=== PATIENT | female | born 1990 ===

== ENCOUNTER 2019-08-19 19:12 | Emergency (ER) | payer OTHER ==
--- NOTE | 2019-08-19 19:22 | UC ---
General HPI - HPI Summary HPI Summary: Pleasant 29 yo female c/o L buttock painful, red bump. Noticed it x approx 2 days. No fever / chills. Not draining. Plans to fly out of state tomorrow, and is concerned that this will get worse. Last tet booster approx 10 yrs ago ( ?), she is not certain. No hx of abcesses nor sores like this, but + [facility]rsa household contact a couple years ago. - History of Current Complaint Stated Complaint: SOFT TISSUE Time Seen by Provider: 08/19/19 19:22 Hx Obtained From: Patient - Allergy/Home Medications Allergies/Adverse Reactions: Allergies Allergy/AdvReac Type Severity Reaction Status Date / Time No Known Allergies Allergy Verified 08/19/19 19:27 Home Medications: Home Medications Multivitamin [Multivitamins] 1 cap PO DAILY 08/19/19 [History Confirmed 08/19/19 ] PMH/Surg Hx/FS Hx/Imm Hx Previously Healthy: Yes - Family History Known Family History: Positive: Non-Contributory Review of Systems All Other Systems Reviewed And Are Negative: Yes Constitutional: Positive: Negative Skin: Positive: Other - see hpi Eyes: Positive: Negative ENT: Positive: Negative Respiratory: Positive: Negative Cardiovascular: Positive: Negative Gastrointestinal: Positive: Negative Genitourinary: Positive: Negative Motor: Positive: Negative Neurovascular: Positive: Negative Musculoskeletal: Positive: Negative Neurological: Positive: Negative Psychological: Positive: Negative Is Patient Immunocompromised?: No Physical Exam Triage Information Reviewed: Yes Appearance: Well-Appearing, Well-Nourished Vital Signs Reviewed: Yes Eye Exam: Normal ENT Exam: Normal Dental Exam: Normal Neck exam: Normal Respiratory Exam: Normal Cardiovascular Exam: Normal Abdominal Exam: Normal Musculoskeletal Exam: Normal Neurological Exam: Normal Psychological Exam: Normal Skin Exam: Other - nondiaphoretic. no visible or reported rash elsewhere. Approx 1.5cm red, indurated, non-fluctuant area mid left buttock. No central fluctuance, necrosis, discoloration. Redness fairly uniform. Course/Dx - Course Course Of Treatment: Reviewed coa / tx plan. At this point, does not need I/D, still early. Will start po abx, warm compresses, etc. If worse, then will seek medical attention, possibly I/D. D/w pt. Tet immun booster offered, Ms. Newton carefully considered but declined. Will f /u for tet booster [place] in hometown. Reviewed mrsa precautions, in case this is the culprit. Questions as posed answered to the best of my ability. - Diagnoses Provider Diagnosis: Abscess, Cellulitis Discharge ED - Sign-Out/Discharge Documenting (check all that apply): Patient Departure All imaging exams completed and their final reports reviewed: No Studies - Discharge Plan Condition: Stable Disposition: HOME Prescriptions: Fluconazole 150 MG TAB* [Diflucan 150 MG TAB*] 150 mg PO ONCE #2 tablet Sulfamethox/Trimethoprim DS* [Bactrim DS 800/160 TAB*] 1 tab PO BID #20 tab Patient Education Materials: Cellulitis (ED), Abscess (ED) Referrals: Amaury Jenkins MD [Primary Care Provider] - Additional Instructions: Warm compresses 2-4 x / day (15 min), care to avoid too hot. Warm baths as possible. Avoid astringents. Minimize pressure to the affected area (offload to opposite side as much as possible via cushion, clothing, etc). Check your tetanus immunization booster status when you get home. Please seek medical attention for worse or new problems. Hydrate. - Billing Disposition and Condition Condition: STABLE Disposition: Home
== END 2019-08-19 20:04 | disposition home or self-care (01) ==
LOC: UCEAST 19:12
DX: L02.31 Cutaneous abscess of buttock (principal); L03.317 Cellulitis of buttock
CPT/HCPCS: 99202; G0463